=== PATIENT | male | born 1950 | race Caucasian/White ===

== ENCOUNTER 2016-11-20 18:29 | Emergency (ER) | payer OTHER ==
[~2016-11-20] VITALS: Ht 185.4 cm; Wt 113.5 kg
[~2016-11-20 18:29] MED LIST: Z.0.NO CURRENT MEDS
[2016-11-20] MEDS ORDERED: IOHEXOL 350 MG/ML 10 ML VIAL (for RAD DIAG) IVCONTRAST ONE (18:30)
[2016-11-20 18:31] VITALS: BP 153/85; PULSE 85; RESP 16; TEMP 98.6; O2SAT 95
--- NOTE | 2016-11-20 20:54 | PD ---
HPI Chief Complaint: GI Complaint Time Seen by Provider: 20:43 Travel History International Travel<30 days: No Contact w/Intl Traveler<30days: No Traveled to known affect area: No History of Present Illness HPI This patient complains of abdominal pain. Severity is moderate. Duration 3 days. Location is right mid abdominal pain. He has no appendix. Has been feeling a bit constipated. No alleviating factors. Denies urinary complaint. No fever. Has not had any vomiting or diarrhea or rectal bleeding PFSH Past Medical History Hx Anticoagulant Therapy: No Cardiovascular Problems: No Chemotherapy: No Cerebrovascular Accident: No Diabetes: No Diminished Hearing: No Respiratory: No Immunizations Current: Yes Tetanus Vaccination: Unknown Influenza Vaccination: No ?: Not Past Surgical History Appendectomy: Yes (1994) Hysterectomy: No Social History Alcohol Use: Yes (12 PCK PER MONTH) Tobacco Use: No Substance Use: No Allergies-Medications (Allergen,Severity, Reaction): Coded Allergies: penicillin G (Unverified Allergy, Severe, SEIZURES, 11/20/16) Reported Meds & Prescriptions Reported Meds & Active Scripts Active Review of Systems General / Constitutional: No: Fever Eyes: No: Visual changes HENT: No: Headaches Cardiovascular: No: Chest Pain or Discomfort Respiratory: No: Shortness of Breath Gastrointestinal: Positive: Abdominal Pain, Constipation Genitourinary: No: Dysuria Musculoskeletal: No: Pain Skin: No Rash Neurologic: No: Weakness Psychiatric: No: Depression Endocrine: No: Polydipsia Hematologic/Lymphatic: No: Easy Bruising Physical Exam Narrative GENERAL: Well-nourished, well-developed patient in no apparent distress. SKIN: Focused skin assessment reveals no rash and nodules. Skin is Warm and dry. HEAD: Atraumatic. Normocephalic. EYES: Pupils equal and round. No scleral icterus. No injection or drainage. ENT: No nasal bleeding or discharge. Mucous membranes pink and moist. NECK: Trachea midline. No JVD. CARDIOVASCULAR: Regular rate and rhythm. No murmur appreciated. RESPIRATORY: No accessory muscle use. Clear to auscultation. Breath sounds equal bilaterally. GASTROINTESTINAL: Abdomen soft, non-tender, nondistended. Hepatic and splenic margins not palpable. MUSCULOSKELETAL: No obvious deformities. No clubbing. No cyanosis. No edema. NEUROLOGICAL: Awake and alert. No obvious cranial nerve deficits. Motor grossly within normal limits. Normal speech. PSYCHIATRIC: Appropriate mood and affect; insight and judgment normal. Data Data Last Documented VS Vital Signs Date Time Temp Pulse Resp B/P (MAP) Pulse Ox O2 Delivery O2 Flow Rate FiO2 11/20/16 18:31 98.6 85 16 153/85 (107) 95 Orders Orders Complete Blood Count With Diff (11/20/16 20:51) Comprehensive Metabolic Panel (11/20/16 20:51) Lipase (11/20/16 20:51) Prothrombin Time / Inr (Pt) (11/20/16 20:51) Act Partial Throm Time (Ptt) (11/20/16 20:51) Urinalysis - C+S If Indicated (11/20/16 20:51) Ct Abd/Pel W Iv Contrast(Rout) (11/20/16 20:51) Iv Access Insert/Monitor (11/20/16 20:51) NPO (11/20/16 20:51) Sodium Chloride 0.9% Flush (Ns Flush) (11/20/16 21:00) Electrocardiogram (11/20/16 21:06) Iohexol 350 Inj (Omnipaque 350 Inj) (11/20/16 18:30) Hydromorphone Pf Inj (Dilaudid Pf Inj) (11/20/16 23:00) Ondansetron Inj (Zofran Inj) (11/20/16 23:00) Ketorolac Inj (Toradol Inj) (11/20/16 23:00) Urine Culture (11/20/16 22:29) Labs Laboratory Tests Test 11/20/16 21:16 11/20/16 22:29 White Blood Count 10.2 TH/MM3 Red Blood Count 4.67 MIL/MM3 Hemoglobin 15.1 GM/DL Hematocrit 43.7 % Mean Corpuscular Volume 93.4 FL Mean Corpuscular Hemoglobin 32.4 PG Mean Corpuscular Hemoglobin Concent 34.7 % Red Cell Distribution Width 13.2 % Platelet Count 280 TH/MM3 Mean Platelet Volume 7.6 FL Neutrophils (%) (Auto) 69.5 % Lymphocytes (%) (Auto) 18.0 % Monocytes (%) (Auto) 11.1 % Eosinophils (%) (Auto) 0.9 % Basophils (%) (Auto) 0.5 % Neutrophils # (Auto) 7.1 TH/MM3 Lymphocytes # (Auto) 1.8 TH/MM3 Monocytes # (Auto) 1.1 TH/MM3 Eosinophils # (Auto) 0.1 TH/MM3 Basophils # (Auto) 0.0 TH/MM3 CBC Comment DIFF FINAL Differential Comment Prothrombin Time 10.7 SEC Prothromb Time International Ratio 1.0 RATIO Activated Partial Thromboplast Time 29.4 SEC Blood Urea Nitrogen 22 MG/DL Creatinine 1.68 MG/DL Random Glucose 95 MG/DL Total Protein 7.1 GM/DL Albumin 3.9 GM/DL Calcium Level 9.0 MG/DL Alkaline Phosphatase 106 U/L Aspartate Amino Transf (AST/SGOT) 17 U/L Alanine Aminotransferase (ALT/SGPT) 21 U/L Total Bilirubin 0.8 MG/DL Sodium Level 137 MEQ/L Potassium Level 3.9 MEQ/L Chloride Level 104 MEQ/L Carbon Dioxide Level 21.2 MEQ/L Anion Gap 12 MEQ/L Estimat Glomerular Filtration Rate 41 ML/MIN Lipase 114 U/L Urine Color YELLOW Urine Turbidity CLEAR Urine pH 6.0 Urine Specific [place] 1.040 Urine Protein 30 mg/dL Urine Glucose (UA) NEG mg/dL Urine Ketones 80 mg/dL Urine Occult Blood SMALL Urine Nitrite NEG Urine Bilirubin NEG Urine Urobilinogen LESS THAN 2.0 MG/DL Urine Leukocyte Esterase TRACE Urine RBC 2 /hpf Urine WBC 9 /hpf Urine Squamous Epithelial Cells <1 /hpf Urine Hyaline Casts 1 /lpf Urine Mucus FEW /lpf Microscopic Urinalysis Comment CULTURE INDICATED MDM Medical Decision Making Medical Screen Exam Complete: Yes Emergency Medical Condition: Yes Medical Record Reviewed: Yes Differential Diagnosis Ileus, obstruction, colitis Narrative Course I have reviewed the patient's electronic medical record. IV placed CBC is normal metabolic profile is normal except for mild renal sufficiency with creatinine 1.68 LFT's are normal lipase is normal Coagulation studies are normal Urinalysis shows 9 white cells and will be cultured but not overly suspicious for infection CT of abdomen and pelvis shows a large right sided kidney stone. No other findings. Right sided kidney stone would explain his right sided abdominal pain. I explained the workup findings in detail with patient. His questions were answered. I gave him injection of pain and nausea medication for symptom relief. Patient is going to call both his family physician tomorrow morning and urology for appointment. He has history of kidney stone in the past but that was [place] another [place] and has no local urologist. I wrote him medication for pain and nausea as well as 10 days of Flomax and some Cipro. If he has significant worsening he will return. I discussed some that this stone is very unlikely to pass given its size and he may need lithotripsy or other urological intervention. Diagnosis Primary Impression: Kidney stone on right side Additional Instructions: The patient was warned about potential sedation for the medications they will receive on prescription. Follow-up with primary care and urology Return if you worsen Med/Other Pt SpecificInfo: Prescription(s) given Scripts Tamsulosin (Flomax) 0.4 Mg Cap 0.4 MG PO HS for Manage Prostate Problems for 10 Days, #30 CAP 0 Refills Prov: Bridger Todd MD 11/20/16 Ondansetron (Zofran) 4 Mg Tab 4 MG PO Q6HR Y for NAUSEA OR VOMITING, #14 TAB 0 Refills Prov: Bridger Todd MD 11/20/16 Oxycodone-Acetaminophen (Percocet) 5-325 mg Tab 1 TAB PO Q6H Y for PAIN, #25 TAB 0 Refills Prov: Bridger Todd MD 11/20/16 Disposition: 01 DISCHARGE HOME Condition: Stable Bridger Todd MD Nov 20, 2016 20:54
[2016-11-20] MEDS ORDERED: SODIUM CHLORIDE 0.9% FLUSH 10 ML FLUSH IV FLUSH PRN (21:00)
[2016-11-20 21:37] LABS: AUTOMATED NEUTROPHIL # 7.1 TH/MM3 (1.8-7.7); BASOPHIL % 0.5 % (0.0-2.0); EOSINOPHIL # 0.1 TH/MM3 (0-0.4); EOSINOPHIL % 0.9 % (0.0-4.0); HEMATOCRIT 43.7 % (39.0-51.0); HEMO FLAGS DIFF FINAL; LYMPHOCYTE # 1.8 TH/MM3 (1.0-4.8); MEAN CELL VOLUME 93.4 FL (80.0-100.0); MEAN CORPUSCULAR HEMOGLOBIN 32.4 PG (27.0-34.0); MEAN CORPUSCULAR HGB CONC 34.7 % (32.0-36.0); MONO % 11.1 % (0.0-8.0); NEUT % 69.5 % (16.0-70.0); PLATELET COUNT 280 TH/MM3 (150-450); RED BLOOD COUNT 4.67 MIL/MM3 (4.50-5.90); RED CELL DISTRIBUTION WIDTH 13.2 % (11.6-17.2); WHITE BLOOD COUNT 10.2 TH/MM3 (4.0-11.0)
[2016-11-20 21:43] LABS: APTT (PATIENT) 29.4 SEC (24.3-30.1); PROTHROMBIN TIME - PATIENT 10.7 SEC (9.8-11.6)
[2016-11-20 21:48] LABS: ANION GAP 12 MEQ/L (5-15); AST (GOT) 17 U/L (15-37); BICARBONATE 21.2 MEQ/L (21.0-32.0); BLOOD UREA NITROGEN 22 MG/DL (7-18); CHLORIDE 104 MEQ/L (98-107); GLOMERULAR FILTRATION RATE 41 ML/MIN (>89); POTASSIUM 3.9 MEQ/L (3.5-5.1); SODIUM (NA) 137 MEQ/L (136-145)
[2016-11-20 21:49] LABS: ALT (GPT) 21 U/L (12-78)
[2016-11-20 21:51] LABS: ALKALINE PHOSPHATASE 106 U/L (45-117); TOTAL BILIRUBIN ADULT 0.8 MG/DL (0.2-1.0)
[2016-11-20 22:00] VITALS: BP 124/81; PULSE 78; RESP 18; O2SAT 95
--- NOTE | 2016-11-20 22:32 | RADRPT ---
EXAM DATE/TIME: 11/20/2016 22:11 [facility] COMPARISON: No previous studies available for comparison. INDICATIONS : Right lower quadrant abdominal pain. Constipated. IV CONTRAST: 96 cc Omnipaque 350 (iohexol) IV ORAL CONTRAST: No oral contrast ingested. RADIATION DOSE: 21.99 CTDIvol (mGy) MEDICAL HISTORY : None SURGICAL HISTORY : Appendectomy. ENCOUNTER: Initial ACUITY: 1 week PAIN SCALE: 5/10 LOCATION: Right lower quadrant TECHNIQUE: Volumetric scanning of the abdomen and pelvis was performed. Using automated exposure control and ad justment of the mA and/or kV according to patient size, radiation dose was kept as low as reasonably achievable to obtain optimal diagnostic quality images. DICOM format image data is available electro nically for review and comparison. FINDINGS: LOWER LUNGS: The visualized lower lungs are clear. LIVER: Homogeneous density without lesion. There is no dilation of the biliary tree. No calcified gallston es. SPLEEN: Normal size without lesion. PANCREAS: Within normal limits. KIDNEYS: 7 x 7 x 11 mm stone seen in the proximal right ureter at the level of L3. There is associated moderat e hydronephrosis and also a delayed nephrogram with mild right perinephric edema. No stone or obstruc tion on the left. ADRENAL GLANDS: Within normal limits. VASCULAR: There is no aortic aneurysm. BOWEL/MESENTERY: The stomach, small bowel, and colon demonstrate no acute abnormality. There is no free intraperitone al air or fluid. ABDOMINAL WALL: Within normal limits. RETROPERITONEUM: There is no lymphadenopathy. BLADDER: No wall thickening or mass. REPRODUCTIVE: Within normal limits. INGUINAL: There is no lymphadenopathy or hernia. MUSCULOSKELETAL: No acute bony abnormality demonstrated. CONCLUSION: 7 x 7 x 11 mm stone of the proximal right ureter causing moderate obstructive uropathy including elayne yed nephrogram. The stone can be seen on the initial autocad operator radiograph. The rest of the CT of the abdo men and pelvis is within normal limits. Moe Quiles MD on November 20, 2016 at 22:28 Board Certified Radiologist. This report was verified electronically.
[2016-11-20 22:51] LABS: BLOOD, URINE SMALL (NEG); COMMENT (UR) CULTURE INDICATED; CULTURE IF INDICATED CULTURE INDICATED; GLUCOSE,URINE NEG (NEG); HYALINE CAST, URINE 1 /lpf (RARE); KETONE, URINE 80 mg/dL (NEG); MUCUS URINE FEW /lpf (OCC); NITRITE,URINE NEG (NEG); SQUAMOUS EPITHELIAL CELL URINE <1 /hpf (0-5); URINE COLOR YELLOW (YELLW/STRAW)
[2016-11-20] MEDS ORDERED: HYDROmorphone HCL PF 1 MG/ML VIAL IVS ONE (23:00)
[2016-11-20] MEDS ORDERED: KETOROLAC TROMETHAMINE 30 MG/ML (IVP) VIAL IVP ONE (23:00)
[2016-11-20] MEDS ORDERED: ONDANSETRON HCL 4 MG/2 ML VIAL IV ONE (23:00)
[2016-11-20] MEDS ORDERED: ZOFR4TAB PO (23:11)
[2016-11-20] MEDS ORDERED: PERC5TAB12 PO (23:11)
[2016-11-20] MEDS ORDERED: TAMS5CAP PO (23:11)
[2016-11-20] MEDS ORDERED: CIPR-9 PO (23:17)
[2016-11-20 23:39] VITALS: BP 149/81; PULSE 80; RESP 18; O2SAT 95
--- NOTE | 2016-11-21 14:08 | EKG ---
Date Performed: 11/20/2016 Time Performed: 21:06:21 PTAGE: 66 years EKG: Sinus rhythm RIGHT BUNDLE BRANCH BLOCK LEFT ANTERIOR FASCICULAR BLOCK MINIMAL VOLTAGE CRITERIA FOR LVH, CONSIDER NORMAL VARIANT POSSIBLE SEPTAL MYOCARDIAL INFARCTION ABNORMAL ECG NO PREVIOUS TRACING DOCTOR: Natalee Gorman Interpretating Date/Time 11/21/2016 14:05:47
== END 2016-11-20 23:52 | disposition home or self-care (01) ==
LOC: NEPD 18:29
DX: N20.0 Calculus of kidney (principal); K59.00 Constipation, unspecified; A49.8 Other bacterial infections of unspecified site; I45.2 Bifascicular block; R94.31 Abnormal electrocardiogram [ECG] [EKG]; Z88.0 Allergy status to penicillin
CPT/HCPCS: 74177; 80053; 81001; 83690; 85025; 85610; 85730; 87086; 93005; 96374; 96375; 99285; J1170; J1885; J2405; Q9967